=== PATIENT | male | born 1955 | race African-American/Black ===

== ENCOUNTER 2019-01-16 14:45 | Inpatient (IN) | payer MEDICAID ==
[~2019-01-16] VITALS: Ht 185.4 cm; Wt 78.0 kg
[2019-01-16] MEDS ORDERED: ACETAMINOPHEN 325MG TABLET PO STA (15:25)
[2019-01-16] MEDS ORDERED: PIPERACILLIN/TAZ 3.375G PREMIX 50 ML IV ONE (15:30)
[2019-01-16] MEDS ORDERED: SODIUM CHLORIDE 0.9% 1000ML BAG (SEPSIS BOLUS) IV ONE (15:30)
[2019-01-16] MEDS ORDERED: VANCOMYCIN 1 G PREMIX 200 ML IV ONE (15:30)
[2019-01-16 15:54] LABS: BASOPHILS % 0.3 % (0.0-2.0); HEMOGLOBIN. 12.4 g/dL (14.0-18.0); LYMPHOCYTES % 7.3 % (20.0-50.0); MEAN CORPUSCULAR HEMOGLOBIN 30.2 pg (28.0-32.0); MEAN CORPUSCULAR VOLUME 87.6 fL (80.0-94.0); MEAN PLATELET VOLUME 8.1 fl (7.4-10.4); MONOCYTES % 7.1 % (2.0-8.0); NEUTROPHILS % 85.3 % (40.0-76.0); PLATELET 231 x1000/uL (130-400); RED BLOOD CELL COUNT 4.11 mill/uL (4.7-6.1); RED CELL DISTRIBUTION WIDTH 12.9 % (11.6-14.6)
[2019-01-16 15:57] LABS: CHLORIDE 97 mEq/L (98-107)
[2019-01-16 16:02] LABS: ETHANOL BLOOD < 10 mg/dL
[2019-01-16 16:47] LABS: BG BASE EXCESS -2.7 mmol/L (-2.0-2.0); BG CARBOXYHEMOGLOBIN 0.5 % (0.5-1.5); BG DEOXYHEMOGLOBIN 6.7 % (0.0-5.0); BG FRACTION INSPIRED OXYGEN 40; BG HCO3 ACT 19.9 mmol/L (22.0-26.0); BG METHEMOGLOBIN 0.2 % (0.0-1.5); BG OXYGEN SATURATION 93.3 % (92.0-98.5); BG OXYHEMOGLOBIN 92.6 % (94.0-97.0); BG PCO2 28.2 mmHg (35.0-45.0); BG PH 7.467 (7.350-7.450); BG PO2 64.6 mmHg (75.0-100.0); BG SAMPLE SITE RIGHT RADIAL; BG VENT MODE NASAL CANNULA
[2019-01-16] MEDS ORDERED: HYDROCODONE/ACETAMINOPHEN 5/325MG TABLET PO PRN (18:15)
[2019-01-16] MEDS ORDERED: ONDANSETRON HCL 4MG/2ML INJ IV PRN (18:15)
[2019-01-16] MEDS ORDERED: CLONIDINE 0.1MG TABLET PO PRN (18:15)
[2019-01-16] MEDS ORDERED: MAGNESIUM/ALUMINUM HYDROXIDE/SIMETHICONE 30ML UDC PO PRN (18:15)
[2019-01-16] MEDS ORDERED: DIPHENHYDRAMINE 50MG/ML VIAL IV PRN (18:15)
[2019-01-16] MEDS ORDERED: DOCUSATE SODIUM 100MG CAPSULE PO PRN (18:15)
[2019-01-16] MEDS ORDERED: ACETAMINOPHEN 325MG TABLET PO PRN (18:15)
[2019-01-16 18:50] LABS: PHOSPHORUS 2.5 mg/dL (2.5-4.9)
[2019-01-16 18:55] LABS: CLARITY URINE CLOUDY (CLEAR); COLOR URINE DARK YELLOW (YELLOW); KETONES URINE NEGATIVE (NEGATIVE); LEUKOCYTE ESTERASE URINE NEGATIVE (NEGATIVE); NITRITE URINE NEGATIVE (NEGATIVE); OCCULT BLOOD URINE NEGATIVE (NEGATIVE); PH URINE 5.5 (4.5-8.0); PROTEIN URINE 2+ (NEGATIVE); SPECIFIC GRAVITY URINE 1.037 (1.005-1.030)
[2019-01-16 19:17] LABS: *AMPHETAMINES SCREEN URINE PRESUMTIVE POSITIVE (NEGATIVE); *BARBITURATES SCREEN URINE NEGATIVE (NEGATIVE); *COCAINE SCREEN URINE NEGATIVE (NEGATIVE); CANNABINOID URINE SCREEN PRESUMTIVE POSITIVE (NEGATIVE); METHADONE URINE SCREEN NEGATIVE (NEGATIVE); OPIATES URINE SCREEN NEGATIVE (NEGATIVE); PHENCYCLIDINE URINE SCREEN NEGATIVE (NEGATIVE)
[2019-01-16 19:19] LABS: *BENZODIAZEPINES SCREEN URINE NEGATIVE (NEGATIVE)
[2019-01-16 22:10] VITALS: BP 107/65
[2019-01-16 22:18] VITALS: BP 107/65
[2019-01-16] MEDS ORDERED: DEXTROSE 50% WATER 50ML SYRINGE IV PRN (22:30)
[2019-01-16] MEDS: MORPHINE SULFATE 4 MG/ML CPJ (NOT FOR IM USE) IV PRN (23:06)
[2019-01-16 23:18] LABS: CREATINE KINASE MB FRACTION 2.9 ng/mL (0.5-3.6)
[2019-01-16] MEDS: IPRATROPIUM/ALBUTEROL 0.5-3(2.5)MG/3ML NEB INH PRN (23:53)
[2019-01-17] VITALS: BP 100/54
[2019-01-17] MEDS: SODIUM CHLORIDE 0.9% 1,000 ML IV SCH ×2 (00:10→10:58)
[2019-01-17 04:00] VITALS: BP 103/64
[2019-01-17] MEDS: IPRATROPIUM/ALBUTEROL 0.5-3(2.5)MG/3ML NEB INH PRN (04:45)
[2019-01-17] MEDS: MORPHINE SULFATE 4 MG/ML CPJ (NOT FOR IM USE) IV PRN (06:21)
[2019-01-17] MEDS ORDERED: BLOOD SUGAR DIAGNOSTIC STRIP TEST SCH (06:45)
[2019-01-17 06:53] LABS: BASOPHILS % 0.2 % (0.0-2.0); HEMATOCRIT. 33.2 % (42.0-52.0); HEMOGLOBIN. 11.2 g/dL (14.0-18.0); LYMPHOCYTES % 15.3 % (20.0-50.0); MEAN CORPUSCULAR HEMOGLOBIN 29.8 pg (28.0-32.0); MEAN CORPUSCULAR VOLUME 88.2 fL (80.0-94.0); MEAN PLATELET VOLUME 8.6 fl (7.4-10.4); NEUTROPHILS % 77.5 % (40.0-76.0); PLATELET 234 x1000/uL (130-400); RED BLOOD CELL COUNT 3.77 mill/uL (4.7-6.1); RED CELL DISTRIBUTION WIDTH 12.9 % (11.6-14.6)
[2019-01-17 07:07] LABS: CHLORIDE 102 mEq/L (98-107)
[2019-01-17] MEDS ORDERED: INSULIN LISPRO 100 UNITS/ML SUBCUT SCH (07:15)
[2019-01-17 07:19] LABS: CREATINE KINASE 68 IU/L (39-308); LDL CHOLESTEROL 61 mg/dL (5-100)
[2019-01-17 07:20] LABS: HDL CHOLESTEROL 23 mg/dL (40-59)
[2019-01-17 08:00] VITALS: BP 95/59
[2019-01-17] MEDS: ENOXAPARIN 40MG/0.4ML SYR SUBCUT SCH (09:16)
[2019-01-17] MEDS: PIPERACILLIN/TAZ 3.375G PREMIX 50 ML IV SCH ×3 (10:57→21:54)
[2019-01-17] MEDS ORDERED: VANCOMYCIN 1250MG in DEXTROSE 5% WATER 250ML IV SCH (11:00)
[2019-01-17] MEDS ORDERED: PNEUMOCOCCAL 23-VAL P-SAC VAC 0.5 ML IM ONE (12:00)
[2019-01-17 12:30] VITALS: BP 86/60
[2019-01-17] MEDS: SIMETHICONE 80MG TABLET CHEW PO SCH ×2 (14:24→18:17)
[2019-01-17 16:00] VITALS: BP 94/60
[2019-01-17] MEDS ORDERED: VANCOMYCIN 1 G PREMIX 200 ML IV SCH (16:00)
[2019-01-17 20:00] VITALS: BP 100/68
[2019-01-17] MEDS ORDERED: VANCOMYCIN 1500MG in DEXTROSE 5% WATER 250ML IV SCH (21:00)
[2019-01-18] VITALS: BP 2/69
[2019-01-18] MEDS: VANCOMYCIN 1500MG in DEXTROSE 5% WATER 250ML IV SCH ×2 (01:03→10:39)
[2019-01-18] MEDS: MORPHINE SULFATE 4 MG/ML CPJ (NOT FOR IM USE) IV PRN ×4 (01:35→23:09)
[2019-01-18 04:00] VITALS: BP 101/64
[2019-01-18] MEDS: PIPERACILLIN/TAZ 3.375G PREMIX 50 ML IV SCH ×2 (06:28→10:23)
[2019-01-18 06:45] LABS: BASOPHILS % 0.4 % (0.0-2.0); EOSINOPHILS % 0.7 % (0.0-5.0); HEMATOCRIT. 33.4 % (42.0-52.0); HEMOGLOBIN. 11.5 g/dL (14.0-18.0); MEAN CORPUSCULAR HEMOGLOBIN 30.3 pg (28.0-32.0); MEAN PLATELET VOLUME 8.6 fl (7.4-10.4); MONOCYTES % 9.6 % (2.0-8.0); NEUTROPHILS % 69.3 % (40.0-76.0); PLATELET 272 x1000/uL (130-400); RED BLOOD CELL COUNT 3.79 mill/uL (4.7-6.1); RED CELL DISTRIBUTION WIDTH 13.3 % (11.6-14.6)
[2019-01-18 07:06] LABS: CHLORIDE 103 mEq/L (98-107)
[2019-01-18 08:00] VITALS: BP 109/62
[2019-01-18] MEDS: ENOXAPARIN 40MG/0.4ML SYR SUBCUT SCH (08:31)
[2019-01-18] MEDS: SIMETHICONE 80MG TABLET CHEW PO SCH ×2 (08:31→17:15)
[2019-01-18 09:10] LABS: ABSOLUTE EOSINOPHILS 0.1 x10E3/uL (0.0-0.4); ABSOLUTE LYMPHOCYTES 1.2 x10E3/uL (0.7-3.1); ABSOLUTE MONOCYTES 0.5 x10E3/uL (0.1-0.9); ABSOLUTE NEUTROPHILS 6.2 x10E3/uL (1.4-7.0); BASOPHILS 0 % (Not Estab.); HEMATOCRIT 32.1 % (37.5-51.0); HEMOGLOBIN 10.9 g/dL (13.0-17.7); IMMATURE GRANULOCYTES 0 % (Not Estab.); LYMPHOCYTES 15 % (Not Estab.); MEAN CORPUSCULAR HEMOGLOBIN 29.2 pg (26.6-33.0); MEAN CORPUSCULAR VOLUME 86 fL (79-97); MONOCYTES 6 % (Not Estab.); NEUTROPHILS 78 % (Not Estab.); PLATELETS 260 x10E3/uL (150-379); RBC 3.73 x10E6/uL (4.14-5.80); RED CELL DISTRIBUTION WIDTH 13.1 % (12.3-15.4)
[2019-01-18] MEDS: GUAIFENESIN 200MG/10ML SUGAR FREE UDC PO PRN (10:29)
[2019-01-18] MEDS: SODIUM CHLORIDE 0.9% 1,000 ML IV SCH (11:45)
[2019-01-18 12:00] VITALS: BP 113/65
[2019-01-18 14:11] LABS: % CD 3 POS. LYMPHOCYTES 77.9 % (57.5-86.2); % CD 4 POS. LYMPHOCYTES 7.5 % (30.8-58.5); % CD 8 POS. LYMPH 69.6 % (12.0-35.5); ABSOLUTE CD 3 935 /uL (622-2402); ABSOLUTE CD 4 HELPER 90 /uL (359-1519); ABSOLUTE CD 8 SUPPRESSOR 835 /uL (109-897); CD4/CD8 RATIO 0.11 (0.92-3.72)
[2019-01-18 16:00] VITALS: BP 116/69
[2019-01-18] MEDS ORDERED: CEFTRIAXONE 2 G PREMIX 50 ML IV SCH (16:30)
[2019-01-18] MEDS: CEFTRIAXONE 2 G in DEXTROSE 5% WATER 50 ML IV SCH (17:15)
[2019-01-18 20:00] VITALS: BP 119/65
[2019-01-19] VITALS: BP 121/72
[2019-01-19 06:25] LABS: BASOPHILS % 0.6 % (0.0-2.0); EOSINOPHILS % 1.4 % (0.0-5.0); HEMATOCRIT. 34.4 % (42.0-52.0); HEMOGLOBIN. 11.8 g/dL (14.0-18.0); LYMPHOCYTES % 24.7 % (20.0-50.0); MEAN CORPUSCULAR HEMOGLOBIN 30.4 pg (28.0-32.0); MEAN CORPUSCULAR VOLUME 88.5 fL (80.0-94.0); MEAN PLATELET VOLUME 8.6 fl (7.4-10.4); MONOCYTES % 12.8 % (2.0-8.0); NEUTROPHILS % 60.5 % (40.0-76.0); PLATELET 299 x1000/uL (130-400); RED BLOOD CELL COUNT 3.89 mill/uL (4.7-6.1); RED CELL DISTRIBUTION WIDTH 13.3 % (11.6-14.6)
[2019-01-19 06:50] LABS: CHLORIDE 101 mEq/L (98-107)
[2019-01-19 08:00] VITALS: BP 101/66
[2019-01-19] MEDS: ENOXAPARIN 40MG/0.4ML SYR SUBCUT SCH (10:02)
[2019-01-19] MEDS: SULFAMETHOXAZOLE/TRIMETHOPRIM 800/160MG TABLET PO SCH (10:02)
[2019-01-19] MEDS: SIMETHICONE 80MG TABLET CHEW PO SCH ×2 (10:02→18:54)
[2019-01-19] MEDS: GUAIFENESIN 200MG/10ML SUGAR FREE UDC PO PRN (10:54)
[2019-01-19] MEDS ORDERED: LACTULOSE 20G/30ML UDC PO NR (11:15)
[2019-01-19] MEDS ORDERED: LACTULOSE 20G/30ML UDC PO PRN (11:15)
[2019-01-19 12:00] VITALS: BP 101/62
[2019-01-19] MEDS: SODIUM CHLORIDE 0.9% 1,000 ML IV SCH (12:45)
[2019-01-19 15:45] LABS: HEPATITIS B SURFACE ANTIGEN NEGATIVE
[2019-01-19 16:00] VITALS: BP 110/71
[2019-01-19 16:15] LABS: HEPATITIS A AB IGM NEGATIVE (NEGATIVE)
[2019-01-19] MEDS: CEFTRIAXONE 2 G in DEXTROSE 5% WATER 50 ML IV SCH (18:54)
[2019-01-19 20:00] VITALS: BP 107/64
[2019-01-19] MEDS: MORPHINE SULFATE 4 MG/ML CPJ (NOT FOR IM USE) IV PRN (22:58)
[2019-01-20] VITALS: BP 108/62
[2019-01-20 04:00] VITALS: BP 113/74
[2019-01-20] MEDS: SODIUM CHLORIDE 0.9% 1,000 ML IV SCH (06:55)
[2019-01-20 08:00] VITALS: BP 107/67
[2019-01-20] MEDS: SIMETHICONE 80MG TABLET CHEW PO SCH ×2 (09:11→18:29)
[2019-01-20] MEDS: ENOXAPARIN 40MG/0.4ML SYR SUBCUT SCH (09:11)
[2019-01-20] MEDS: SULFAMETHOXAZOLE/TRIMETHOPRIM 800/160MG TABLET PO SCH (09:11)
[2019-01-20 12:00] VITALS: BP 103/60
[2019-01-20] MEDS: GUAIFENESIN 200MG/10ML SUGAR FREE UDC PO PRN (13:17)
[2019-01-20] MEDS ORDERED: MY80 PO (13:40)
[2019-01-20] MEDS ORDERED: SULF1TAB44 PO (13:40)
[2019-01-20] MEDS ORDERED: LEVO750T46 MT (13:40)
[2019-01-20 16:00] VITALS: BP 110/68
[2019-01-20] MEDS: CEFTRIAXONE 2 G in DEXTROSE 5% WATER 50 ML IV SCH (18:00)
[2019-01-22 19:06] LABS: *HIV-1 RNA BY PCR 374260 copies/mL (.)
== END 2019-01-20 20:32 | disposition home or self-care (01) | DRG 892 ==
LOC: ER 14:45 → 5WST 17:39 → EDBEDREQ 17:42 → EDBEDREQTM 17:42 → ENRESERV 20:38 → CANBEDREQ 01-17 03:55
PROVIDERS: ADMIT Internal Medicine; ATTEND Internal Medicine
DX: B20 Human immunodeficiency virus [HIV] disease (principal); A41.9 Sepsis, unspecified organism; B37.0 Candidal stomatitis; J18.1 Lobar pneumonia, unspecified organism; E87.1 Hypo-osmolality and hyponatremia; K56.7 Ileus, unspecified; F19.10 Other psychoactive substance abuse, uncomplicated; D64.9 Anemia, unspecified; F12.90 Cannabis use, unspecified, uncomplicated; F15.90 Other stimulant use, unspecified, uncomplicated; Z91.14 Patient's other noncompliance with medication regimen
CPT/HCPCS: 36415; 36600; 71045; 74176; 76700; 80048; 80061; 80202; 80305; 80320; 82375; 82550; 82553; 82805; 82962; 83036; 83605; 83735; 84100; 84145; 84484; 86359; 86360; 86705; 86709; 86803; 87077; 87186; 87340; 87536; 93005; 96365; 96368; 97165; 99291; C1893; J0696; J1650; J2270; J2543; J3370; J7030; J7050; J7060; J7620; G0480

== ENCOUNTER 2020-03-05 17:53 | Emergency (ER) | payer MEDICAID ==
[~2020-03-05] VITALS: Ht 185.4 cm; Wt 77.0 kg
[~2020-03-05 17:53] MED LIST: LEVO750T46 MT; MY80 PO; SULF1TAB44 PO
[2020-03-05] MEDS ORDERED: CLINDAMYCIN 600 MG in DEXTROSE 5% WATER 50 ML IV ONE (21:45)
[2020-03-05] MEDS ORDERED: KETOROLAC 30MG/ML VIAL IV ONE (21:45)
[2020-03-05] MEDS ORDERED: HYDROCODONE/ACETAMINOPHEN 5/325MG TABLET PO ONE (21:45)
[2020-03-05 21:46] LABS: BASOPHILS % 0.4 % (0.0-2.0); EOSINOPHILS % 0.5 % (0.0-5.0); HEMATOCRIT. 34.4 % (42.0-52.0); HEMOGLOBIN. 11.9 g/dL (14.0-18.0); LYMPHOCYTES % 29.6 % (20.0-50.0); MEAN CORPUSCULAR HEMOGLOBIN 30.8 pg (28.0-32.0); MEAN CORPUSCULAR VOLUME 89.2 fL (80.0-94.0); MEAN PLATELET VOLUME 8.2 fl (7.4-10.4); MONOCYTES % 9.5 % (2.0-8.0); PLATELET 207 x1000/uL (130-400); RED BLOOD CELL COUNT 3.85 mill/uL (4.7-6.1); RED CELL DISTRIBUTION WIDTH 14.3 % (11.6-14.6)
[2020-03-05 21:48] LABS: CHLORIDE 104 mEq/L (98-107)
[2020-03-05] MEDS ORDERED: CLINDAMYCIN 600MG PREMIX 50 ML IV SCH (22:30)
[2020-03-05 23:05] VITALS: BP 120/89
== END 2020-03-05 23:54 | disposition home or self-care (01) ==
LOC: ER 17:53
DX: L03.116 Cellulitis of left lower limb (principal); F15.10 Other stimulant abuse, uncomplicated; Z79.899 Other long term (current) drug therapy
CPT/HCPCS: 36415; 71045; 80053; 83880; 84484; 85025; 93005; 93971; 96365; 96375; 99285; J1885; J3490; J7060

== ENCOUNTER 2023-06-11 02:49 | Emergency (ER) | payer OTHER, MEDICAID ==
[~2023-06-11] VITALS: Ht 185.4 cm; Wt 78.0 kg
[~2023-06-11 02:49] MED LIST changes: -LEVO750T46 MT; +LEVO750T68 MT; -MY80 PO; +SIME80TA16 PO
[2023-06-11 03:11] VITALS: BP 105/63; O2SAT 96
[2023-06-11] MEDS ORDERED: GUAIFENESIN 600MG ER TABLET PO ONE (04:15)
[2023-06-11] MEDS ORDERED: ACETAMINOPHEN 325MG TABLET PO ONE (04:15)
[2023-06-11] MEDS ORDERED: IPRATROPIUM BROMIDE (0.02%) 0.5MG/2.5ML NEB HHN ONE (04:15)
[2023-06-11] MEDS ORDERED: ALBUTEROL (0.083%) 2.5MG/3ML NEB HHN ONE (04:15)
[2023-06-11 04:37] VITALS: PULSE 77; RESP 18; O2SAT 94
[2023-06-11] MEDS ORDERED: ALBU6.7H15 INH (04:59)
[2023-06-11] MEDS ORDERED: MED4 MT (04:59)
[2023-06-11] MEDS ORDERED: GUAI600T26 MT (04:59)
[2023-06-11 05:07] VITALS: PULSE 77; RESP 18; TEMP 98.2
== END 2023-06-11 05:08 | disposition home or self-care (01) ==
LOC: ER 02:49
DX: R05.3 Chronic cough (principal); F15.10 Other stimulant abuse, uncomplicated; Z98.890 Other specified postprocedural states
CPT/HCPCS: 71045; 94640; 99283; Z7610 ×3

== ENCOUNTER 2023-07-21 00:16 | Emergency (ER) | payer OTHER, MEDICAID ==
[~2023-07-21] VITALS: Ht 185.4 cm; Wt 77.0 kg
[~2023-07-21 00:16] MED LIST changes: +ALBU6.7H15 INH; +GUAI600T26 MT; +MED4 MT
[2023-07-21 01:02] VITALS: O2SAT 98
[2023-07-21] MEDS ORDERED: PREDNISONE 20MG TABLET PO ONE (04:00)
[2023-07-21] MEDS ORDERED: CODE10LI MT (06:10)
[2023-07-21] MEDS ORDERED: P20 PO (06:10)
[2023-07-21 06:21] VITALS: BP 129/88; PULSE 70; RESP 18; TEMP 98.1
== END 2023-07-21 06:23 | disposition home or self-care (01) ==
LOC: ER 00:16
DX: R05.3 Chronic cough (principal); R60.0 Localized edema; F15.10 Other stimulant abuse, uncomplicated
CPT/HCPCS: 99284; 93971; 71045; J7512